=== PATIENT | female | born 1990 | race Caucasian/White ===

== ENCOUNTER 2017-09-02 17:52 | Emergency (ER) | payer OTHER ==
[~2017-09-02] VITALS: Ht 162.6 cm; Wt 88.5 kg
[2017-09-02 17:59] VITALS: BP 148/83
[2017-09-02] MEDS ORDERED: LEVE500T9 PO (17:59)
== END 2017-09-02 18:37 | disposition home or self-care (01) ==
LOC: ER 17:55
DX: E86.0 Dehydration (principal); G40.909 Epilepsy, unspecified, not intractable, without status epilepticus
CPT/HCPCS: 99283; A4606; Z7610